=== PATIENT | female | born 1955 | race Caucasian/White ===

== ENCOUNTER 2017-01-05 11:15 | Inpatient (IN) | payer BC ==
[2016-12-05 11:04] VITALS: BMI 44.0
--- NOTE | 2016-12-05 11:30 | PAT Medication Instructions ---
Service Date Dec 05, 2016. Current Home Medication List Cetirizine (Zyrtec), 10 MG PO QPM Ibuprofen (Motrin), 800 MG PO QAM Lisinopril (Zestril), 15 MG PO QPM Metformin Hcl (Glucophage), 500 MG PO BID Multivitamin (Multivitamin), 1 TAB PO QPM Medication Instructions For Your Scheduled Surgery - Check with surgeon for instructions: Ibuprofen (Motrin), 800 MG PO QAM - Hold the following medications 48 hours prior to surgery: Metformin Hcl (Glucophage), 500 MG PO BID - Hold the following medications the morning of surgery: Multivitamin (Multivitamin), 1 TAB PO QPM - Hold the following medications as scheduled the night before surgery: Lisinopril (Zestril), 15 MG PO QPM - Take the following medications as scheduled the night before surgery: Cetirizine (Zyrtec), 10 MG PO QPM If you have any questions please call us at [phone] or [phone] or [phone]
--- NOTE | 2016-12-05 12:19 | DIAGNOSTIC IMAGING REPORT ---
CHEST PREADMISSION(PA/LAT) CLINICAL HISTORY: PAT preoperative evaluation COMPARISON STUDY: No previous studies for comparison. FINDINGS: The bones soft tissues and hemidiaphragms are normal. The cardiomediastinal silhouette is normal. The lungs are clear. The pulmonary vasculature is normal. IMPRESSION: Negative chest. The above report was generated using voice recognition software. It may contain grammatical, syntax or spelling errors. Electronically signed by: Red Galvan M.D. 12/05/2016 12:18 PM Dictated Date/Time: 12/05/2016 12:18 PM
[2016-12-05 12:21] LABS: BASO % 0.6 %; BASO ABS # 0.04 K/uL (0-0.2); COMPLETE YES; EOS % 2.5 %; HEMATOCRIT 37.6 % (37-47); IG% 0.1 %; LYMPH % 28.9 %; LYMPH ABS # 2.07 K/uL (1.2-3.4); MEAN CELL VOLUME 88.7 fL (80-100); MEAN CORPUSCULAR HGB CONC 32.7 g/dl (32-36); MEAN PLATELET VOLUME 10.5 fL (7.4-10.4); MONO % 5.3 %; NEUT % 62.6 %; PLATELET COUNT 306 K/uL (130-400); RED BLOOD COUNT 4.24 M/uL (4.2-5.4); WHITE BLOOD COUNT 7.17 K/uL (4.8-10.8)
[2016-12-05 12:33] LABS: PARTIAL THROMBOPLASTIN RATIO 0.9; PROTHROMBIN TIME (PATIENT) 10.4 SECONDS (9.0-12.0)
[2016-12-05 12:58] LABS: URINE APPEARANCE CLEAR (CLEAR); URINE BILIRUBIN NEG (NEG); URINE COLOR DK YELLOW; URINE EPITHELIAL CELL AUTO >30 /lpf (0-5); URINE NITRITE NEG (NEG); URINE SPECIFIC GRAVITY 1.021 (1.000-1.030); UROBILINOGEN NEG (NEG)
[2016-12-05 13:05] LABS: MANUAL MICROSCOPIC REQUIRED? NO; REVIEW REQ? NO
[2016-12-05 13:17] LABS: BUN/CREATININE RATIO 19.8 (10-20); CALCIUM 9.9 mg/dl (8.5-10.1); CREATININE 1.6 mg/dl (0.60-1.20); POTASSIUM 4.3 mmol/L (3.5-5.1)
--- NOTE | 2017-01-04 16:56 | HISTORY & PHYSICAL EXAMINATION ---
DATE OF ADMISSION: 01/05/2017 HISTORY AND PHYSICAL ADMISSION NOTE CHIEF COMPLAINT: Primary osteoarthritis of the left knee. HISTORY OF PRESENT ILLNESS: Ayan is a pleasant 61-year-old female who has been having a several year history of increasing chronic left knee pain. She did have a left knee arthroscopy in the past by Dr. Briggs but did not have much relief. She had been treated with injections over the past few years, but the injections are not helping. X-rays show advanced osteoarthritis of the knee and she has elected to proceed with a left total knee arthroplasty. PAST MEDICAL HISTORY: Significant for prediabetic and hypertension. MEDICATIONS: Include lisinopril 15 mg daily, metformin 500 mg twice a day, ibuprofen as needed for pain. PAST SURGICAL HISTORY: Significant for cholecystectomy and a left knee arthroscopy. ALLERGIES: None. FAMILY HISTORY: Noncontributory. SOCIAL HISTORY: The patient is . Rarely drinks, is moderately active. REVIEW OF SYSTEMS: The patient complains of left knee pain. All other pertinent review of systems is negative. PHYSICAL EXAMINATION: GENERAL: She is awake, alert and oriented x3. She is in no apparent distress. She is very pleasant. HEENT: Pupils are equal, round and reactive to light. Extraocular motions intact. Oral mucosa is pink and moist. HEART: Regular rate per radial pulse. LUNGS: Katherine symmetrically bilaterally with no audible breath sounds. ABDOMEN: Soft, nontender, nondistended. MUSCULOSKELETAL: On physical examination of her left knee, she has a slight varus deformity. She has good motion from 0-120 degrees. She has no instability. She has a lot of pain located over the medial joint line and over the distal medial femoral condyle. She also has some patellofemoral pain. IMAGING DATA: X-rays of the left knee do show advanced osteoarthritis mostly of the medial compartment and patellofemoral joint. IMPRESSION: Primary osteoarthritis of the left knee. PLAN: Will proceed with a left total knee arthroplasty. Postoperatively, she will be started on aspirin 325 twice a day for DVT prophylaxis. I will likely keep her in the hospital for 2 midnights for postoperative medical management.
[~2017-01-05] VITALS: Ht 167.6 cm; Wt 123.9 kg
[2017-01-05] MEDS: TRANEXAMIC ACID INJ 1,000 MG in SODIUM CHLORIDE 0.9% 100ML 100 ML IV SCH ×2 (06:30→14:44)
[~2017-01-05 11:15] MED LIST: ACETAMINOPHEN 500 MG TAB PO SCH; BUPIVACAINE 0.5 % 5 MG/1 ML PF 10ML VIAL ONE; BUPIVACAINE/EPINEPHRINE 0.5% MPF 1:200,000 10 ML VIAL ONE; CEFAZOLIN 3000 MG/65 ML D5W 65 ML IV SCH; CETI10TA84 PO; DEXAMETHASONE SOD INJ 4 MG/ML VIAL ONE; FAMOTIDINE 20 MG TAB PO SCH; GABAPENTIN 300 MG CAP PO SCH; GLC/500 PO; IBUP-1428 PO; LACTATED RINGER'S 1000ML 1,000 ML IV SCH; LACTATED RINGER'S 1000ML 500 ML IV ONE; LACTATED RINGER'S 1000ML IV SCH; LISI-787 PO; MULT-506 PO; ROPIVACAINE 5MG/ML 30 ML 150 MG, BUPIVACAINE/EPINEPHR 0.5% MPF 30 ML, KETOROLAC TROMETH... INFIL SCH; SODIUM CHLORIDE 0.9% INJ 10 ML VIAL ONE
[2017-01-05 11:38] VITALS: BP 120/87; PULSE 103; TEMP 36.7; O2SAT 95; Ht 167.6 cm; Wt 123.9 kg
--- NOTE | 2017-01-05 12:34 | History & Physical Bridge Note ---
H&P Re-Evaluation Bridge Note: I have examined the patient, reviewed the History & Physical and in the interval since the performance of the History & Physical I have noted the following changes of clinical significance: No changes noted
[2017-01-05] MEDS ORDERED: FENTANYL CITRATE INJ 50 MCG/1 ML 2 ML VIAL ONE ×2 (13:52→14:43)
[2017-01-05] MEDS ORDERED: MIDAZOLAM HCL 1 MG/ML 2ML VIAL ONE ×4 (13:52→15:13)
[2017-01-05] MEDS ORDERED: PROPOFOL IV EMULSION 10 MG/ML 20 ML VIAL IV ONE (14:22)
[2017-01-05] MEDS ORDERED: BACITRACIN 50000 UNIT VIAL ONE (14:42)
[2017-01-05] MEDS ORDERED: ORTHO JOINT ANESTHETIC ONE (14:42)
[2017-01-05] MEDS ORDERED: ONDANSETRON INJ 2 MG/ML 2 ML VIAL ONE (15:43)
[2017-01-05] MEDS ORDERED: LIDOCAINE HCL 2% 2 ML VIAL (20MG/ML) ONE (15:43)
--- NOTE | 2017-01-05 16:47 | [facility] Post Operative Brief Note ---
Immediate Operative Summary Operative Date Jan 05, 2017. Pre-Operative Diagnosis Primary Osteoarthritis of the Left Knee Post-Operative Diagnosis Same as preoperative Procedure(s) Performed Left Total Knee Arthroplasty Surgeon Dr. Negro Watson Transmitter Supervisor Surgeon(s) Mk Reid PA-C Estimated Blood Loss 5ml Findings as above Specimens A.) Left Knee Bone and Tissue Complication(s) None Disposition Recovery Room / PACU
[2017-01-05] MEDS ORDERED: ONDANSETRON INJ 2 MG/ML 2 ML VIAL IV PRN (17:00)
[2017-01-05] MEDS ORDERED: MoRPHine SULFATE 2 MG/ML CARP IV PRN (17:00)
[2017-01-05] MEDS ORDERED: BISACODYL 10 MG SUPP PR PRN (17:00)
[2017-01-05] MEDS ORDERED: METOCLOPRAMIDE HCL INJ 5 MG/ML 2 ML VIAL IV PRN (17:00)
[2017-01-05] MEDS ORDERED: OXYCODONE HCL IR 5 MG TAB (IMMEDIATE RELEASE) PO PRN (17:00)
[2017-01-05] MEDS ORDERED: SILVER SULFADIAZINE 1% CR 50 GM JAR EXT PRN (17:00)
[2017-01-05] MEDS ORDERED: MAGNESIUM HYDROXIDE SUSP 30 ML UDC PO PRN (17:00)
[2017-01-05] MEDS ORDERED: SOD PHOSPHATE/SOD BIPHOSPHATE ENEMA 132 ML BTL PR PRN (17:00)
--- NOTE | 2017-01-05 17:46 | Anesthesiology Progress Note ---
Anesthesia Post Op Note Date & Time Jan 05, 2017 at 17:45 Vital Signs Pain Intensity: 0 Vital Signs Past 12 Hours Date Time Temp Pulse Resp B/P (MAP) Pulse Ox O2 Delivery O2 Flow Rate FiO2 01/05/17 17:30 67 18 115/75 94 Nasal Cannula 2 01/05/17 17:24 36.6 01/05/17 17:21 121/71 01/05/17 17:17 72 19 95 01/05/17 17:17 73 19 01/05/17 17:16 113/72 01/05/17 17:12 66 17 97 01/05/17 17:12 65 17 01/05/17 17:11 72 19 112/72 95 01/05/17 17:11 72 19 01/05/17 17:07 111/66 01/05/17 17:06 79 21 01/05/17 17:06 78 21 98 01/05/17 17:02 111/78 01/05/17 17:01 95 14 92 01/05/17 17:01 90 14 01/05/17 17:01 36.4 75 16 111/78 97 Mask 10 01/05/17 11:38 36.7 103 18 120/87 95 Room Air Notes Mental Status: alert / awake / arousable, participated in evaluation Pt Amnestic to Procedure: Yes Nausea / Vomiting: adequately controlled Pain: adequately controlled Airway Patency, RR, SpO2: stable & adequate BP & HR: stable & adequate Hydration State: stable & adequate Neuraxial Anesthesia: was administered, sensory block is resolving Anesthetic Complications: no major complications apparent
--- NOTE | 2017-01-05 17:52 | DIAGNOSTIC IMAGING REPORT ---
LEFT KNEE 1 OR 2 VIEWS ROUTINE CLINICAL HISTORY: 61 years-old Female presenting with postoperative left total knee arthroplasty. TECHNIQUE: Frontal and lateral views of the left knee were obtained. COMPARISON: None. FINDINGS: Postsurgical changes of total left knee arthroplasty with patellar resurfacing. No acute fracture or hardware complication is evident. A surgical drain and overlying skin rajesh noted as well as intra-articular emphysema. IMPRESSION: Expected postsurgical changes status post left total knee arthroplasty with patellar resurfacing. Electronically signed by: Lucien Cool M.D. 01/05/2017 5:51 PM Dictated Date/Time: 01/05/2017 5:50 PM
[2017-01-05 18:00] VITALS: BP 126/90; PULSE 63; TEMP 36.4; O2SAT 69
[2017-01-05 18:30] VITALS: BP 127/86; PULSE 53; TEMP 36.3; O2SAT 96
[2017-01-05] MEDS: SODIUM CHLORIDE 0.9% 1000ML 1,000 ML IV SCH (18:43)
[2017-01-05 19:24] VITALS: BP 119/75; PULSE 53; TEMP 36.3; O2SAT 97
[2017-01-05] MEDS: ACETAMINOPHEN IV 1,000 MG in EMPTY BAG 0 ML IV SCH (19:47)
[2017-01-05 20:33] VITALS: BP 118/82; PULSE 52; TEMP 36.4; O2SAT 95
[2017-01-05] MEDS: CETIRIZINE HCL 10 MG TAB PO SCH (21:05)
[2017-01-05] MEDS: ASPIRIN 325 MG ECTAB PO SCH (21:05)
[2017-01-05] MEDS: SENNA 8.6 MG TAB PO SCH (21:06)
[2017-01-05] MEDS: LISINOPRIL/HCTZ 20/12.5MG TAB PO SCH (21:06)
[2017-01-05] MEDS: DOCUSATE SODIUM 100 MG CAP PO SCH (21:06)
--- NOTE | 2017-01-05 21:35 | OPERATIVE REPORT ---
DATE OF OPERATION: 01/05/2017 PREOPERATIVE DIAGNOSIS: Primary osteoarthritis of the left knee. POSTOPERATIVE DIAGNOSIS: Same. PROCEDURE: Left total knee arthroplasty. SURGEON: Dr. Negro Watson. TIRE REGROOVING MACHINE OPERATOR: Brandin Reid PA-C, whose assistance was necessary for retraction and closure. ANESTHESIA: Spinal with a left adductor nerve block. COMPLICATIONS: None. CONDITION: Stable to PACU. IMPLANTS USED: I used a [employer] Vanguard left total knee arthroplasty system with a size 67.5 left femur, a size 71 tibia, a size 10 posterior stabilized poly and a 31 x 8 mm patella. All components were cemented with Palacos G cement. INDICATIONS: Ayan is a pleasant 61-year-old female who presented to my office with complaints of chronic left knee pain. X-rays and clinical examination were diagnostic for primary osteoarthritis of the left knee. After failing extensive conservative treatment, she elected to undergo a left total knee arthroplasty. OPERATION AND FINDINGS: On 01/05/2017, she arrived at [facility] for the above procedure. She was seen in the preoperative holding area and the operative extremity was identified and signed. She was given an adductor nerve block and a spinal anesthetic. She was taken back to the operating room, laid on the table in supine position and given basic sedation. The left knee was then prepped and draped in sterile fashion. Time-out was done and the patient and operative extremity was properly identified. A midline incision was made directly over the patella. Dissection was taken down to the extensor mechanism and a medial parapatellar approach was used. The medial retinaculum was released, the fat pad was left intact. The ACL, PCL and meniscus were resected. The knee was then flexed. A drill was sent down the center of the femoral canal, followed by an intramedullary morena. Off that morena, a distal femoral cutting block was placed and 12 mm was resected off the distal femur at 5 degrees of valgus. A distal femoral sizing guide was then used and the femur measured to be a size 67.5. Two drill holes were placed in 3 degrees of external rotation. The 4-in-1 cutting block was then impacted into place. Anterior, posterior and chamfer cuts were then made. A box cutting guide was placed and the box was resected for the posterior stabilizing component. The proximal tibia was then exposed. A drill was sent down the center of the tibial canal, followed by an intramedullary morena. Off that morena, a proximal tibial resection guide was placed and 2 mm was resected off the low tibial side. The tibia was then sized and measured to be a size 71. The tibia was then drilled and punched. The posterior aspect of the knee was opened up and any soft tissue or meniscal remnants were removed and any posterior osteophytes were removed. Trial components were placed. The knee was brought through a full range of motion and felt to be stable. The patella was then everted and 8 mm was resected off the posterior aspect of the patella. The patella measured to be a size 31 and 3 peg holes were then drilled. A trial patella was placed. The knee was brought through a full range of motion and felt to be stable. All trial components were then removed. The knee was then irrigated. Final components were cemented in place with Palacos G cement. The surrounding soft tissues were injected with 100 mL of an orthopedic pain control cocktail. The knee was then irrigated with 3 liters of normal saline solution with bacitracin. The final size 10 polyethylene insert was then snapped into place and the anterior bar was locked. Two drains were placed. The extensor mechanism was closed with #2 FiberWire sutures at the superior medial aspect of the patella and then #1 Vicryl suture, both proximally and distally. Skin was then closed with 2-0 Vicryl, 3-0 V-Loc suture and rajesh. She was then placed in a soft compressive dressing and taken to the postanesthesia care unit in stable condition. She tolerated the procedure well. I attest to the content of the Intraoperative Record and any orders documented therein. Any exception s are noted below.
[2017-01-05] MEDS: KETOROLAC TROMETHAMINE 30 MG/ML VIAL IV. SCH (21:47)
[2017-01-05] MEDS: CEFAZOLIN IV 2,000 MG in DEXTROSE 5% 50ML 50 ML IV SCH (21:47)
[2017-01-05 23:36] VITALS: BP 108/70; PULSE 54; TEMP 36.7; O2SAT 98
[2017-01-06] MEDS: SODIUM CHLORIDE 0.9% 1000ML 1,000 ML IV SCH ×2 (02:24→12:04)
[2017-01-06 03:21] VITALS: BP 95/63; PULSE 46; TEMP 36.8; O2SAT 96
[2017-01-06] MEDS: ACETAMINOPHEN IV 1,000 MG in EMPTY BAG 0 ML IV SCH ×3 (04:18→20:03)
[2017-01-06] MEDS: KETOROLAC TROMETHAMINE 30 MG/ML VIAL IV. SCH ×4 (04:19→21:44)
[2017-01-06] MEDS: CEFAZOLIN IV 2,000 MG in DEXTROSE 5% 50ML 50 ML IV SCH (05:48)
[2017-01-06 05:51] VITALS: O2SAT 95
[2017-01-06 06:51] LABS: HEMATOCRIT 36.1 % (37-47); MEAN CELL VOLUME 88.7 fL (80-100); MEAN CORPUSCULAR HEMOGLOBIN 28.3 pg (25-34); MEAN CORPUSCULAR HGB CONC 31.9 g/dl (32-36); MEAN PLATELET VOLUME 9.7 fL (7.4-10.4); PLATELET COUNT 283 K/uL (130-400); RED BLOOD COUNT 4.07 M/uL (4.2-5.4)
[2017-01-06 07:03] VITALS: BP 112/71; PULSE 68; TEMP 36.4; O2SAT 93
[2017-01-06 07:32] LABS: BUN/CREATININE RATIO 16.9 (10-20); CALCIUM 8.6 mg/dl (8.5-10.1); CREATININE 1.9 mg/dl (0.60-1.20); POTASSIUM 4.5 mmol/L (3.5-5.1)
[2017-01-06] MEDS: DOCUSATE SODIUM 100 MG CAP PO SCH ×2 (09:19→20:41)
[2017-01-06] MEDS: METFORMIN HCL 500 MG TAB PO SCH ×2 (09:19→17:32)
[2017-01-06] MEDS: PANTOprazole SOD 40 MG TAB PO SCH (09:20)
[2017-01-06] MEDS: ASPIRIN 325 MG ECTAB PO SCH ×2 (09:20→20:42)
[2017-01-06] MEDS: MULTIVITAMIN TAB PO SCH (09:20)
--- NOTE | 2017-01-06 11:08 | PROGRESS NOTE ---
DATE: 01/06/2017 DATE: 01/06/2017 CHIEF COMPLAINT: Status post left total knee arthroplasty postop day #1. PROGRESS: Ayan was seen and examined at bedside today. She was sitting upright in a chair. She says she really has no pain in her knee. She has already been ambulating with physical therapy, has no complaints. PHYSICAL EXAMINATION: LEFT KNEE: The dressing is clean and dry. The drain was pulled this morning because it had lost suction. She is neurovascularly intact. LABORATORY DATA: She has an H&H today of 11.5 and 36.1. Her glucose is 171. Her vital signs are stable on room air. She is voiding on her own. X-rays postoperatively of the left knee showed the prosthesis to be in anatomical alignment without any evidence of fracture, dislocation or loosening. IMPRESSION: Status post left total knee arthroplasty postop day #1. PLAN: At this point, she is doing very well. She will continue to get physical therapy. She is on aspirin for DVT prophylaxis and we will just watch her sugars for now. She is on metformin and if we need insulin then I will give it. Will plan for discharge to home tomorrow with home health services.
[2017-01-06 11:25] VITALS: BP 118/79; PULSE 60; TEMP 36.4; O2SAT 93
[2017-01-06 15:21] VITALS: BP 112/77; PULSE 54; TEMP 36.6; O2SAT 97
[2017-01-06] MEDS: SENNA 8.6 MG TAB PO SCH (20:42)
[2017-01-06] MEDS: LISINOPRIL/HCTZ 20/12.5MG TAB PO SCH (20:42)
[2017-01-06] MEDS: CETIRIZINE HCL 10 MG TAB PO SCH (20:42)
[2017-01-06 23:05] VITALS: BP 134/83; PULSE 84; TEMP 36.8; O2SAT 94
[2017-01-07] MEDS: KETOROLAC TROMETHAMINE 30 MG/ML VIAL IV. SCH ×2 (04:27→09:26)
[2017-01-07] MEDS: ACETAMINOPHEN IV 1,000 MG in EMPTY BAG 0 ML IV SCH (04:27)
[2017-01-07 06:55] VITALS: BP 123/86; PULSE 75; TEMP 35.6; O2SAT 99
[2017-01-07] MEDS: MULTIVITAMIN TAB PO SCH (07:31)
[2017-01-07] MEDS: METFORMIN HCL 500 MG TAB PO SCH (07:31)
[2017-01-07] MEDS: ASPIRIN 325 MG ECTAB PO SCH (07:31)
[2017-01-07] MEDS: DOCUSATE SODIUM 100 MG CAP PO SCH (07:31)
[2017-01-07] MEDS: PANTOprazole SOD 40 MG TAB PO SCH (07:32)
[2017-01-07] MEDS ORDERED: RXC5 PO (07:35)
[2017-01-07] MEDS ORDERED: ASPEC325 PO (07:35)
--- NOTE | 2017-01-07 07:38 | Discharge Instructions ---
Discharge Instructions Date of Service Jan 07, 2017. Admission Reason for Admission: Left Knee Osteoarthritis Discharge Discharge Diagnosis / Problem: Left Total Knee Discharge Goals Goal(s): Decrease discomfort, Improve function Activity Recommendations Activity Limitations: as noted below . Instructions / Follow-Up Instructions / Follow-Up Activity and Therapy Recommendations: * If you are using [facility] then Physical Therapy will be provided until they feel you are ready to start Outpatient Physical Therapy. If you are not using a Home Health agency then Outpatient Physical Therapy should start about 3-5 days from your day of surgery. Therapy will last about 6-10 weeks * It is important not to put a pillow under your knee when you are relaxing or sleeping. It is just as important to make sure you are getting your knee perfectly straight as it is to regain your knee bend. * You were shown a series of exercises in the hospital. Do these exercises three times each day including the exercises you were shown in physical therapy. * Get up and walk several times each day. For the first four weeks, try not to stand or walk for more than one hour at a time. If you do stand or walk for more than one hour, you will not hurt anything, but your leg will likely swell. * As you feel comfortable, you may change from the walker or crutches to a cane and then to independent walking. Medications: * Narcotic You will likely be sent home from the hospital with a prescription for the narcotic pain medication that worked best throughout your stay. * Aspirin Most patients will be required to take Aspirin 325mg twice a day for 6 weeks after surgery. This is obtained [id number] and a prescription is not necessary. * Other medications may be prescribed for specific circumstances. If you have any questions, please call the office at . * Resume previous home medications unless otherwise instructed TEDs/Elastic Stockings: The white elastic stockings help limit swelling and prevent blood clots from forming in your legs.~ The more you wear them, the more they work. Wear them for six weeks. Showering: You may shower 5 days from the day of surgery. Let the soapy shower water run over the rajesh. Do not scrub or soak the incision. Things To Watch For: * Drainage from the incision site that occurs more than one week after your surgery. * Increased redness at the incision site. * Fever above 102 degrees Fahrenheit. * Unusual chest pain or shortness of breath. * Call [facility] at with any of the above problems Follow-Up Visit: Follow-up with Dr. Watson 2-3 weeks after your day of surgery. An appointment was probably scheduled when you signed-up for surgery in the office. If you have any questions call Office Instructions: More detailed instructions as well as Frequently Asked Questions were provided in a folder by our office when you signed-up for surgery. Please review these instructions when you get home. If you have any further questions or concerns, please feel free to call the office at [phone] Current Hospital Diet Patient's current hospital diet: Diabetes Type 2 Diet Discharge Diet Recommended Diet: Diabetes Type 2 Diet Procedures Procedures Performed: Left Total Knee Arthroplasty Pending Studies Studies pending at discharge: no Medical Emergencies . Who to Call and When: Medical Emergencies: If at any time you feel your situation is an emergency, please call 911 immediately. . Non-Emergent Contact Non-Emergency issues call your: Surgeon Call Non-Emergent contact if: wound has increased drainage, wound has increased redness . "Provider Documentation" section prepared by Negro Watson. . VTE Core Measure Inpt VTE Proph given/why not?: Other Anticoagulation (Aspirin 325 twice a day for 6 weeks)
--- NOTE | 2017-01-07 07:58 | PROGRESS NOTE ---
DATE: 01/07/2017 CHIEF COMPLAINT: Status post left total knee arthroplasty, postop day #2. PROGRESS: Ayan was seen and examined at bedside today. Overall, she is doing very well. She has been working well with physical therapy. Her pain is well controlled. She is sitting up, eating breakfast, has no complaints. PHYSICAL EXAMINATION: LEFT KNEE: There is a little bit of drainage on the dressing. The drains have been pulled. She is sitting with her knee flexed at 90 degrees. She is neurovascularly intact. IMPRESSION: Status post left total knee arthroplasty, postoperative day #2. PLAN: At this point, she is doing well. She is on aspirin for DVT prophylaxis. She will get therapy one more time this morning and then we will discharge her to home.
[2017-01-07 08:17] VITALS: BP 123/86; PULSE 75; TEMP 35.6; O2SAT 99
[2017-01-07 09:00] VITALS: BP 123/86; PULSE 75; O2SAT 99
--- NOTE | 2017-01-07 22:07 | DISCHARGE SUMMARY ---
DISCHARGE DIAGNOSIS: Primary osteoarthritis of the left knee. PROCEDURE: Left total knee arthroplasty on 01/05/[address] Negro Watson. DISCHARGE INSTRUCTIONS: 1. Aspirin 325 mg twice a day for 6 weeks. 2. Oxycodone 5-10 mg every 4 hours as needed for pain. 3. Zyrtec 10 mg daily. 4. Motrin as needed for pain. 5. Zestoretic 20/12.5 mg daily. 6. Glucophage 50 mg twice a day. 7. Daily multivitamin. 8. Daily dry dressing changes. 9. Follow up with Dr. Watson in 2 weeks. 10. Call the office of Dr. Watson with any questions or concerns. HOSPITAL COURSE: Ayan is a pleasant 61-year-old female who presented to my office with complaints of chronic left knee pain. X-rays and clinical examination were diagnostic for primary osteoarthritis of the left knee. After failing conservative treatment, she elected to undergo a left total knee arthroplasty. On 01/05/2017, she arrived at [facility] and underwent a left knee replacement without complications. She had a spinal anesthetic and a left adductor nerve block. Postoperatively, she was started on aspirin 325 mg twice a day and discharged to general orthopedic floor. Her hospital course was uneventful. On postop day #1, her H&H was stable at 11.5 and 36.1. She was able to work well with physical therapy. Her pain was controlled. On postop day #2, the dressing was changed, the drain was pulled. She continued to work well with physical therapy and she was subsequently discharged to home with oral pain medications and the above instructions.
== END 2017-01-07 09:55 | disposition home health service (06) | DRG 470 ==
LOC: C.ACU 11:15 → C.3E 16:50 → ENRESERV 17:14
PROVIDERS: ADMIT Orthopaedic Surgery; ATTEND Orthopaedic Surgery
PROC: 0SRD0J9 Replacement of Left Knee Joint with Synthetic Substitute, Cemented, Open Approach (ICD-10-PCS; principal; 2017-01-05 13:40)
DX: M17.12 Unilateral primary osteoarthritis, left knee (principal); Z68.41 Body mass index [BMI] 40.0-44.9, adult; I10 Essential (primary) hypertension; R73.03 Prediabetes; E66.01 Morbid (severe) obesity due to excess calories; Z79.899 Other long term (current) drug therapy; Z79.1 Long term (current) use of non-steroidal anti-inflammatories (NSAID); Z79.84 Long term (current) use of oral hypoglycemic drugs